=== PATIENT | male | born 1985 | race American Indian/Alaskan Native ===

== ENCOUNTER 2019-08-03 11:38 | Emergency (ER) | payer SELFPAY ==
--- NOTE | 2019-08-03 14:50 | Emergency Department Report ---
Blank Doc - Documentation Documentation: 34-year-old male that presents with URI symptoms. This initial assessment/diagnostic orders/clinical plan/treatment(s) is/are subject to change based on patient's health status, clinical progression and re- assessment by fellow clinical providers in the ED. Further treatment and workup at subsequent clinical providers discretion. Patient/guardians urged not to elope from the ED as their condition may be serious if not clinically assessed and managed. Initial orders include: 1- Patient sent to [facility] for further evaluation and treatment 2- CXR
--- NOTE | 2019-08-03 15:29 | XRay Report ---
CHEST 2 VIEWS INDICATION: cough. COMPARISON: None FINDINGS: Support devices: None. Heart: Within normal limits. Lungs/pleura: No acute air space or interstitial disease. No pneumothorax. Additional findings: None. IMPRESSION: Normal chest x-ray Signer Name: Qasim Darling Jr, MD Signed: 08/03/2019 3:25 PM Workstation Name: [id number]
[2019-08-03] MEDS ORDERED: IBUPROFEN 600 MG TAB PO ONE (20:04)
[2019-08-03] MEDS ORDERED: predniSONE 20 MG TAB PO ONE (20:04)
--- NOTE | 2019-08-03 21:33 | Emergency Department Report ---
- General Chief Complaint: Upper Respiratory Infection Stated Complaint: LFT SIDE EXTREME PAIN Time Seen by Provider: 08/03/19 14:50 Source: patient Mode of arrival: Ambulatory Limitations: No Limitations - History of Present Illness Initial Comments: This is a 34-year-old male who presented to the ED, no acute onset persistent severe nasal and sinus congestion, dry cough, pleuritic chest wall pain, posterior mid thoracic pain and diffuse body aches and pain for the last 5 days. Patient states that he has been taking [id number] remedies with no relief. Patient denies fever, chills, nausea, vomiting, syncope, headache, chest pain, shortness of breath, abdominal pain, traumatic injury, fall, heavy lifting, sulfa, change in vision or dizziness. MD Complaint: cough, rhinorrhea, nasal congestion, sinus pain, other (upper back pain) -: Sudden, days(s) (5) Severity: moderate Severity scale (0 -10): 4 Quality: sharp, aching Consistency: constant Improves With: nothing Worsens With: nothing Associated Symptoms: denies other symptoms, myalgias, headache, rhinorrhea, nasal congestion, cough. denies: diaphoresis, sore throat, chest pain, shor tness of breath, abdominal pain, nausea, vomiting, diarrhea, dysuria, rash, right sweats, weight loss, epistaxis, ear pain, other Treatments Prior to Arrival: none - Related Data Previous Rx's Medication Instructions Recorded Last Taken Type Azithromycin [Zithromax TAB] 250 mg PO QDAY #6 tablet 08/03/19 Unknown Rx Benzonatate [Tessalon Perles] 100 mg PO Q8HR #30 capsule 08/03/19 Unknown Rx Cyclobenzaprine [Flexeril] 10 mg PO Q8H PRN #15 tablet 08/03/19 Unknown Rx Ibuprofen [Motrin] 800 mg PO Q8HR PRN #24 tablet 08/03/19 Unknown Rx methylPREDNISolone [Medrol 4MG 4 mg PO DAILY #21 tab.ds.pk 08/03/19 Unknown Rx DOSEPAK (21 tabs)] Allergies Allergy/AdvReac Type Severity Reaction Status Date / Time No Known Allergies Allergy Unverified 08/03/19 11:52 ED Review of Systems ROS: Stated complaint: LFT SIDE EXTREME PAIN Other details as noted in HPI Constitutional: denies: chills, fever Eyes: denies: eye pain, eye discharge, vision change ENT: congestion. denies: ear pain, throat pain Respiratory: cough. denies: shortness of breath, wheezing Cardiovascular: denies: chest pain, palpitations Endocrine: no symptoms reported Gastrointestinal: denies: abdominal pain, nausea, diarrhea Genitourinary: denies: urgency, dysuria Musculoskeletal: back pain (UPPER BACK). denies: joint swelling, arthralgia Skin: denies: rash, lesions Neurological: denies: headache, weakness, paresthesias Psychiatric: denies: anxiety, depression Hematological/Lymphatic: denies: easy bleeding, easy bruising ED Past Medical Hx - Past Medical History Previous Medical History?: No - Surgical History Past Surgical History?: Yes Additional Surgical History: Left hand. Right knee - Social History Smoking Status: Never Smoker Substance Use Type: None - Medications Home Medications: Home Medications Medication Instructions Recorded Confirmed Last Taken Type Azithromycin [Zithromax TAB] 250 mg PO QDAY #6 tablet 08/03/19 Unknown Rx Benzonatate [Tessalon Perles] 100 mg PO Q8HR #30 capsule 08/03/19 Unknown Rx Cyclobenzaprine [Flexeril] 10 mg PO Q8H PRN #15 tablet 08/03/19 Unknown Rx Ibuprofen [Motrin] 800 mg PO Q8HR PRN #24 tablet 08/03/19 Unknown Rx methylPREDNISolone [Medrol 4MG 4 mg PO DAILY #21 tab.ds.pk 08/03/19 Unknown Rx DOSEPAK (21 tabs)] ED Physical Exam - General Limitations: No Limitations General appearance: alert, in no apparent distress - Head Head exam: Present: atraumatic, normocephalic, normal inspection - Eye Eye exam: Present: normal appearance, EOMI - ENT ENT exam: Present: normal exam, normal orophraynx, mucous membranes moist, other (grossly congested nasal passages with palpable frontal sinus tenderness) - Neck Neck exam: Present: normal inspection, full ROM - Respiratory Respiratory exam: Present: normal lung sounds bilaterally. Absent: respiratory distress, wheezes, rales, stridor, chest wall tenderness, prolonged expiratory - Cardiovascular Cardiovascular Exam: Present: regular rate, normal rhythm, normal heart sounds. Absent: systolic murmur, diastolic murmur, rubs, gallop - GI/Abdominal GI/Abdominal exam: Present: soft, normal bowel sounds. Absent: tenderness, guarding, hyperactive bowel sounds, organomegaly - Extremities Exam Extremities exam: Present: normal inspection, full ROM. Absent: normal capillary refill - Back Exam Back exam: Present: normal inspection, full ROM, tenderness (palpable upper and mid posterior thoracic paraspinal musculoskeletal tenderness), muscle spasm, paraspinal tenderness - Neurological Exam Neurological exam: Present: alert, oriented X3, CN II-XII intact, normal gait, reflexes normal - Psychiatric Psychiatric exam: Present: normal affect, normal mood - Skin Skin exam: Present: warm, dry, intact, normal color. Absent: rash ED Course Vital Signs 08/03/19 13:28 Temperature 98.5 F Pulse Rate 88 Respiratory 18 Rate Blood Pressure 142/60 O2 Sat by Pulse 95 Oximetry ED Medical Decision Making - Radiology Data Radiology results: report reviewed, image reviewed Chest x-ray shows no acute cardiopulmonary abnormalities or pneumonitis. - Medical Decision Making This is a 34-year-old male who presented to the ED, no acute onset persistent severe nasal and sinus congestion, dry cough, pleuritic chest wall pain, posterior mid thoracic pain and diffuse body aches and pain for the last 5 days. In the ED, patient is alert and oriented 3 and is not in distress. Patient was treated for pain and 80. Chest x-ray shows no acute cardiopulmonary abnormalities or pneumonitis. Patient's symptoms are likely due to acute upper respiratory infection and bronchitis. Patient was discharged home on medications and advised to follow-up with his primary care physician in 5-7 days for reevaluation or return to the ED immediately if symptoms get worse. - Differential Diagnosis URI; Bronchitis; Pneumonia; Muscle spasm; sinusitis Critical care attestation.: If time is entered above; I have spent that time in minutes in the direct care of this critically ill patient, excluding procedure time. ED Disposition Clinical Impression: Acute upper respiratory infection, Spasm of thoracic back muscle Acute bronchitis Qualifiers: Bronchitis organism: other organism Qualified Code(s): J20.8 - Acute bronchitis due to other specified organisms Disposition: - TO HOME OR SELFCARE Is pt being admited?: No Does the pt Need Aspirin: No Condition: Stable Instructions: Acute Bronchitis (ED), Upper Respiratory Infection (ED), Muscle Spasm (ED) Additional Instructions: Take medications with food, drink plenty of fluids and follow up with your primary care physician in 5-7 days for reevaluation. Return to the ED immed iately if symptoms get worse. Prescriptions: Cyclobenzaprine [Flexeril] 10 mg PO Q8H PRN #15 tablet PRN Reason: Muscle Spasm methylPREDNISolone [Medrol 4MG DOSEPAK (21 tabs)] 4 mg PO DAILY #21 tab.ds.pk Ibuprofen [Motrin] 800 mg PO Q8HR PRN #24 tablet PRN Reason: Pain , Severe (7-10) Benzonatate [Tessalon Perles] 100 mg PO Q8HR #30 capsule Azithromycin [Zithromax TAB] 250 mg PO QDAY #6 tablet Referrals: [facility] [Outside] - 7-10 days Time of Disposition: 21:31 Print Language: [place]
[2019-08-03 21:54] VITALS: BP 120/76
== END 2019-08-03 21:40 | disposition home or self-care (01) ==
LOC: ED 11:38
DX: J20.8 Acute bronchitis due to other specified organisms (principal); J06.9 Acute upper respiratory infection, unspecified; M62.838 Other muscle spasm
CPT/HCPCS: 71046; 99283; J7512

== ENCOUNTER 2020-07-16 00:48 | Emergency (ER) | payer SELFPAY ==
[2020-07-16] MEDS ORDERED: ASPIRIN 325 MG TAB PO ONE (01:33)
--- NOTE | 2020-07-16 02:12 | XRay Report ---
CHEST 1 VIEW 0205 INDICATION / CLINICAL INFORMATION: MAIN COMPARISON: 08/03/2019 FINDINGS: SUPPORT DEVICES: None HEART / MEDIASTINUM: No significant abnormality. LUNGS / PLEURA: Minimal scarring is again seen in the left base. No acute infiltrates are noted. No p neumothorax. ADDITIONAL FINDINGS: No significant additional findings. IMPRESSION: No significant acute abnormality Signer Name: Ildefonso Edward MD Signed: 07/16/2020 2:08 AM Workstation Name: [id number]
[2020-07-16 02:34] LABS: Basophils # (Auto) 0.1 K/mm3 (0.0-0.1); Basophils % (Auto) 0.9 % (0.0-1.8); Eosinophils # (Auto) 0.2 K/mm3 (0.0-0.4); Eosinophils % (Auto) 3.7 % (0.0-4.3); Hematocrit 39.7 % (35.5-45.6); Hemoglobin 13.4 gm/dl (11.8-15.2); Lymphocytes # (Auto) 2.8 K/mm3 (1.2-5.4); Lymphocytes % (Auto) 40.9 % (13.4-35.0); Mean Corpuscular HGB Conc 34 % (32-34); Mean Corpuscular Volume 83 fl (84-94); Monocytes # (Auto) 0.9 K/mm3 (0.0-0.8); Monocytes % (Auto) 13.5 % (0.0-7.3); Platelet Count 272 K/mm3 (140-440); Red Blood Count 4.81 M/mm3 (3.65-5.03); Red Cell Distribution Width 14.5 % (13.2-15.2)
[2020-07-16 02:41] LABS: BUN/Creatinine Ratio 17; Blood Urea Nitrogen 20 mg/dL (9-20); Calcium 8.8 mg/dL (8.4-10.2); Hemolysis Index 1
[2020-07-16] MEDS ORDERED: LIDOCAINE VISCOUS 2% 15 ML ORAL LIQD PO ONE (12:05)
[2020-07-16] MEDS ORDERED: ALUM-MAG HYDROXIDE-SIMETHICONE 200-200-20MG/5ML ORAL LIQD 30 ML PO ONE (12:05)
--- NOTE | 2020-07-16 12:09 | Emergency Department Report ---
ED Chest Pain HPI - General Chief Complaint: Chest Pain Stated Complaint: CHEST PAIN Time Seen by Provider: 07/16/20 11:57 Source: family Mode of arrival: Ambulatory Limitations: No Limitations - History of Present Illness Initial Comments: This is a 35-year-old -[place] male who presents to the emergency department with a complaint of some midsternal to left-sided chest pain that started last night, about 30 minutes prior to presentation. At first it was more of a sharp pain, but now the pain has decreased and is more of a gas pain. The patient has started to do some burping which causes some relief. He denies any fever, back pain, coughing, nausea, vomiting or diaphoresis. He took some aspirin for his symptoms prior to arrival. He denies any past medical history. He is a tobacco smoker but denies any illicit drug use. No recent travel or sick contacts at home. No family history of any early cardiac events or NM. No known aggravating factors of his chest pain. - Related Data Previous Rx's Medication Instructions Recorded Last Taken Type Azithromycin [Zithromax TAB] 250 mg PO QDAY #6 tablet 08/03/19 Unknown Rx Benzonatate [Tessalon Perles] 100 mg PO Q8HR #30 capsule 08/03/19 Unknown Rx Cyclobenzaprine [Flexeril] 10 mg PO Q8H PRN #15 tablet 08/03/19 Unknown Rx Ibuprofen [Motrin] 800 mg PO Q8HR PRN #24 tablet 08/03/19 Unknown Rx methylPREDNISolone [Medrol 4MG 4 mg PO DAILY #21 tab.ds.pk 08/03/19 Unknown Rx DOSEPAK (21 tabs)] Famotidine [Pepcid] 20 mg PO BID #14 tablet 07/16/20 Unknown Rx Allergies Allergy/AdvReac Type Severity Reaction Status Date / Time No Known Allergies Allergy Unverified 08/03/19 11:52 Heart Score - HEART Score History: Slightly suspicious EKG: Normal Age: < 45 Risk factors: 1-2 risk factors Troponin: < normal limit HEART Score: 1 - Critical Actions Critical Actions: 0-3 pts:0.9-1.7%risk of adverse cardiac event.Candidate for discharge ED Review of Systems ROS: Stated complaint: CHEST PAIN Other details as noted in HPI Comment: All other systems reviewed and negative Constitutional: denies: chills, fever Eyes: denies: eye pain, vision change ENT: denies: ear pain, throat pain Respiratory: denies: cough, wheezing Cardiovascular: chest pain. denies: palpitations, edema Gastrointestinal: denies: abdominal pain, vomiting Genitourinary: denies: dysuria, discharge Musculoskeletal: denies: back pain, arthralgia Skin: denies: rash, lesions Neurological: denies: headache, weakness ED Past Medical Hx - Past Medical History Previous Medical History?: No - Surgical History Past Surgical History?: Yes Additional Surgical History: Left hand. Right knee - Social History Smoking Status: Current Every Day Smoker Substance Use Type: Marijuana - Medications Home Medications: Home Medications Medication Instructions Recorded Confirmed Last Taken Type Azithromycin [Zithromax TAB] 250 mg PO QDAY #6 tablet 08/03/19 Unknown Rx Benzonatate [Tessalon Perles] 100 mg PO Q8HR #30 capsule 08/03/19 Unknown Rx Cyclobenzaprine [Flexeril] 10 mg PO Q8H PRN #15 tablet 08/03/19 Unknown Rx Ibuprofen [Motrin] 800 mg PO Q8HR PRN #24 tablet 08/03/19 Unknown Rx methylPREDNISolone [Medrol 4MG 4 mg PO DAILY #21 tab.ds.pk 08/03/19 Unknown Rx DOSEPAK (21 tabs)] Famotidine [Pepcid] 20 mg PO BID #14 tablet 07/16/20 Unknown Rx ED Physical Exam - General Limitations: No Limitations - Other Other exam information: GENERAL: The patient is well-developed well-nourished. HENT: Normocephalic. Atraumatic. Patient has moist mucous membranes. EYES: Extraocular motions are intact. NECK: Supple. Trachea is midline. CHEST/LUNGS: Clear to auscultation. There is no respiratory distress noted. HEART/CARDIOVASCULAR: Regular. There is no tachycardia. There is no murmur. ABDOMEN: Abdomen is soft, nontender. Patient has normal bowel sounds. There is no abdominal distention. SKIN: Skin is warm and dry. NEURO: The patient is awake, alert, and oriented. The patient is cooperative. The patient has no focal neurologic deficits. Normal speech. MUSCULOSKELETAL: There is no tenderness or deformity. There is no limitation range of motion. ED Course Vital Signs 07/16/20 07/16/20 07/16/20 01:11 07:43 12:24 Temperature 98.3 F 98.1 F Pulse Rate 81 74 66 Respiratory 18 22 16 Rate Blood Pressure 136/83 151/84 Blood Pressure 135/78 [Left] O2 Sat by Pulse 98 98 97 Oximetry CLARK score - Clark Score Age > 65: (0) No Aspirin use within the Past 7 Days: (0) No 3 or more CAD Risk Factors: (0) No 2 or more Angina events in past 24 hrs: (1) Yes Known CAD with more than 50% Stenosis: (0) No Elevated Cardiac Markers: (0) No ST Deviation Greater than 0.5mm: (0) No CLARK Score: 1 ED Medical Decision Making - Lab Data Result diagrams: 07/16/20 01:40 07/16/20 01:40 - EKG Data -: EKG Interpreted by Me EKG shows normal: sinus rhythm, axis, intervals (Slightly prolonged NH interval), QRS complexes, ST-T waves Rate: normal - EKG Data When compared to previous EKG there are: previous EKG unavailable Interpretation: normal EKG (With slightly prolonged NH interval) - Radiology Data Radiology results: image reviewed interpreted by me: Chest x-ray does not show any acute process. There are no pleural effusions, obvious pneumonia and there is no pneumothorax. No significant cardiomegaly. - Medical Decision Making This patient presented to the emergency department last night, prior to my shift, with a complaint of some midsternal to left-sided chest pain. Initially it was a sharp pain, but now, at the time of my examination, it is more of a dull gas pain and the patient has started having some burping. EKG did not have any morphology consistent with ST elevation myocardial infarction. Chest x-ray does not show any pneumonia, pleural effusions, pneumothorax, or any other acute process. Patient's labs have been unremarkable including CBC, metabolic panel, and negative troponins x3. Patient was given a GI cocktail. He is low on the heart and CLARK score. The patient is low on the Wells score criteria and negative on the pulmonary embolism rule out criteria. His vital signs have been reassuring throughout his ED course. From these reasons the patient appears safe for discharge home at this time. His contact information has been sent over to the [facility], and someone from their office should be contacting him shortly for close outpatient follow-up as part of our [facility] low risk chest pain protocol. Critical Care Time: No Critical care attestation.: If time is entered above; I have spent that time in minutes in the direct care of this critically ill patient, excluding procedure time. ED Disposition Clinical Impression: Atypical chest pain, Elevated blood pressure reading Disposition: TO HOME OR SELFCARE Is pt being admited?: No Condition: Stable Instructions: Nonspecific Chest Pain, Adult, Preventing Hypertension, Chest Pain (ED) Additional Instructions: Please follow-up with a primary care physician in the next few days. Please try and quit smoking. I have sent your contact information over to the [facility], and someone from their office should be contacting you shortly for close outpatient follow-up. Just in case, I have given you a referral for one of their rn clinical trials, Dr. Lin. Prescriptions: Famotidine [Pepcid] 20 mg PO BID #14 tablet Referrals: PRIMARY MD LEIGHTON [Primary Care Provider] - 2-3 Days WALLACE LIN MD [Staff Physician] - 2-3 Days Time of Disposition: 12:10
[2020-07-16 12:29] VITALS: BP 135/78
== END 2020-07-16 12:32 | disposition home or self-care (01) ==
LOC: ED 00:48
DX: R07.89 Other chest pain (principal); R03.0 Elevated blood-pressure reading, without diagnosis of hypertension; F17.200 Nicotine dependence, unspecified, uncomplicated; F12.10 Cannabis abuse, uncomplicated; Z79.899 Other long term (current) drug therapy
CPT/HCPCS: 36415; 71045; 80048; 84484; 85025; 93005